=== PATIENT | male | born 1950 | race Caucasian/White ===

== ENCOUNTER 2018-03-23 11:34 | Outpatient (RCR) | payer OTHER, SELFPAY | END 2018-03-23 23:59 | disposition home or self-care (01) | LOC: CR 11:34 | PROVIDERS: Visit Provider Family Medicine | DX: Z95.2 Presence of prosthetic heart valve (principal); I50.9 Heart failure, unspecified; Z51.89 Encounter for other specified aftercare | CPT/HCPCS: S9472 ==

== ENCOUNTER 2018-04-20 13:20 | Outpatient (RCR) | payer OTHER, SELFPAY | END 2018-04-22 23:59 | disposition home or self-care (01) | LOC: CR 13:20 | PROVIDERS: Visit Provider Family Medicine | DX: Z95.2 Presence of prosthetic heart valve (principal); I50.9 Heart failure, unspecified; Z51.89 Encounter for other specified aftercare | CPT/HCPCS: S9472 ==

== ENCOUNTER 2018-05-14 11:50 | Outpatient (RCR) | payer OTHER, SELFPAY | END 2018-05-23 23:59 | disposition home or self-care (01) | LOC: CR 11:50 | PROVIDERS: Visit Provider Family Medicine | DX: Z95.2 Presence of prosthetic heart valve (principal); I50.9 Heart failure, unspecified; Z51.89 Encounter for other specified aftercare | CPT/HCPCS: S9472 ==

== ENCOUNTER 2023-07-31 14:55 | Outpatient (CLI) | payer MEDICARE, BC, SELFPAY ==
[2023-07-31 15:02] LABS: Abs Immature Grans 0.02 10^3/uL (0.0-0.06); Absolute Basophil Count 0.07 10^3/uL (0.0-0.2); Absolute Eosinophil Count 0.24 10^3/uL (0.0-0.7); Absolute Lymphocyte Count 2.45 10^3/uL (1.2-3.4); Absolute Monocyte Count 0.77 10^3/uL (0.1-0.8); Absolute Neutrophil Count 5.81 10^3/uL (1.2-6.7); Basophils % 0.7; Eosinophils % 2.6; HCT 44.4 % (40.0-50.0); HGB 14.6 g/dL (13.5-17.5); Immature Grans % 0.2; Lymphocytes % 26.2; MCH 30.2 pg (27.0-33.0); MCHC 32.9 % (32.0-36.0); MCV 92 fL (80-95); MPV 9.7 fL (8.0-11.0); Monocytes % 8.2; Neutrophils % 62.1; Platelet Count 276 10^3/uL (130-400); RBC 4.84 10^6/uL (4.36-5.78); RDW 12.7 % (11.8-14.1); RDW-SD 42.7 fL; WBC 9.36 10^3/uL (4.4-10.8)
[2023-07-31 15:53] LABS: ALT 32 U/L (16-63); AST 20 U/L (15-37); Albumin 4.1 g/dL (3.4-5.0); Alkaline Phosphatase 60 U/L (46-116); Anion Gap 5.7 mmol/L (3-11); BUN 16 mg/dL (7-18); Bilirubin, Total 0.7 mg/dL (0.2-1.0); CO2 30.3 mmol/L (21.0-32.0); CREATININE 1.2 mg/dL (0.70-1.30); Calcium 9.8 mg/dL (8.5-10.1); Chloride 103 mmol/L (98-107); Estimated GFR 65.06 (mL/min/1.73m2); Glucose 102 mg/dL (74-106); Potassium 4.2 mmol/L (3.5-5.1); Sodium 139 mmol/L (136-145); Total Protein 7.8 g/dL (6.4-8.2)
== END 2023-07-31 14:56 | disposition home or self-care (01) ==
LOC: LBO 14:56
PROVIDERS: Visit Provider Nurse Practitioner Family
DX: R22.0 Localized swelling, mass and lump, head (principal)
CPT/HCPCS: 36415; 80053; 85025

== ENCOUNTER → 2023-08-01 01:24 | Outpatient (CLI) | payer MEDICARE, BC, SELFPAY ==
--- NOTE | 2023-08-01 07:30 | DI.US_ITS ---
Exam(s) US SOFT TISSUE HEAD OR NECK EXAM: US SOFT TISSUE HEAD OR NECK CLINICAL HISTORY: evaluate pathology,swelling rt side of face,r22.0. TECHNIQUE: Ultrasound was performed of the parotid glands. COMPARISON: No exams were available for comparison FINDINGS: Submitted images reveal a complex partially solid partially cystic mass in the right parotid gland camara perficial lobe measuring 5 x 3.9 x 2.4 cm. Exhibits rim hyperemia. There few small adjacent lymph no gen noted. Scanning of the opposite-left parotid gland be reveals a solitary cyst measuring 9 x 8 mm. Scanning of both submandibular glands does not reveal significant masses. IMPRESSION: There is a partially solid partially cystic mass in the superficial aspect of the right parotid gland measuring 5 x 3.9 x 2.4 cm. Differential diagnosis is between neoplasm versus is abscess. There is a small 9 mm benign cyst in the opposite-left parotid gland. No obvious focal findings in both submandibular glands. DATA REPOSITORY:
== END ==
PROVIDERS: Visit Provider Nurse Practitioner Family
DX: K11.8 Other diseases of salivary glands (principal)
CPT/HCPCS: 76536

== ENCOUNTER → 2023-08-22 01:06 | Outpatient (CLI) | payer MEDICARE, BC, SELFPAY ==
--- NOTE | 2023-08-22 07:00 | DI.US_ITS ---
Exam(s) US NEEDLE LOCAL OTHER WO RAD EXAM: Right parotid mass,ultrasound guided bx,k11.8 COMPARISON: No exams were available for comparison TECHNIQUE: Ultrasound performed using standard protocol. FINDINGS: Sonography was provided for Dr. Ramsay during the performance of a right parotid gland mass biopsy. Please refer to the procedure report for complete details. DATA REPOSITORY:
--- NOTE | 2023-08-22 11:35 | PAPNONF_PTH ---
PATIENT: Willie Garrett LOC: [facility] U#:[id number] AGE/SX: 74/M ROOM: RE08/22/[address]: Jayson Ramsay MD : 1950 BED: DIS: SPEC #: [id number] RECD: 08/22/23 11:50 STATUS: MARK REAdi #: [id number] JAIME: 08/22/23 11:[address]: Jayson Ramsay DEPT: [facility] Cytology RECD BY: Josee Dior ENTERED: 08/22/23 11:52 SP TYPE: PAPKATIEF SHANNAN DR: Unknown,Unknown Tissues: 1 - BODY FLUID CYTO-FINE NEEDLE [facility] Procedures: BODY FLUID CYTO-FINE NEEDLE ASPIRATE[facility] Comments: [id number] (PATH FNA CONSULT) (REFRIGERATED)
--- NOTE | 2023-08-22 11:53 | OPPNE_ITS ---
Date of service: 08/22/23 Time of Service: 11:53 Procedure Note Date of procedure: 08/22/23 Procedure: Ultrasound-guided FNA, right parotid mass, pathology present Procedure Diagnosis: Right parotid mass-cystic/solid components Procedure Indications: I reviewed the findings with the patient. We discussed options. He wished to proceed with FNA of the right parotid mass. He was premedicated with 2 g of a moxicillin. The below was then performed after obtaining written consent. Procedure Description: The patient was positioned in supine position with his head turned to the left. Ultrasound was used to localize the right parotid mass which revealed a cystic center and solid periphery. 1% lidocaine with 1/100,000 epinephrine was injected into the skin and subcutaneous tissues overlying the mass after the patient was prepped and draped in appropriate fashion. Using the ultrasound for guidance, a 25-gauge needle was carefully introduced into the solid component of the mass and multiple passes were made into this area. Pathology confirmed adequate cellularity. 2 separate passes were performed. After ensuring adequate hemostasis, a sterile dressing was applied. The patient was then allowed to sit and then stand. His vital signs remained stable. He was able to ambulate afterwards without difficulty. He will call with any signs of infection. He will remove the bandage later today and not replace it. He will call if he does not hear from me within 1 week with regard to pathology results. He had no further questions. His had no further questions. They are comfortable with the plan.
== END ==
PROVIDERS: Visit Provider Otolaryngology
DX: C07 Malignant neoplasm of parotid gland (principal)
CPT/HCPCS: 10005; 76942; 88104

== ENCOUNTER → 2023-11-06 13:05 | Outpatient (CLI) | payer MEDICARE, BC, SELFPAY ==
--- NOTE | 2023-11-06 12:15 | DI.RAD_ITS ---
Exam(s) XR CHEST 2V PA LATERAL EXAM: XR CHEST 2V PA LATERAL CLINICAL HISTORY: evaluate pathology,COUGH R05.9 TECHNIQUE: 2D digital imaging was performed. Two views. COMPARISON: No exams were available for comparison FINDINGS: HEART: Normal size. Aorta: Not dilated. Valve prosthesis. PULMONARY VASCULATURE: Normal. LUNGS: Clear. PLEURAL SPACE: No pleural effusion or pneumothorax. BONE:Flowing osteophytes in the thoracic spine. Sternal wires. Soft tissues: Unremarkable. IMPRESSION: No acute abnormality. DATA REPOSITORY: RADIATION DOSE DELIVERED:
== END ==
PROVIDERS: Visit Provider Nurse Practitioner Family
DX: R05.9 Cough, unspecified (principal)
CPT/HCPCS: 71046

== ENCOUNTER 2023-11-10 12:47 | Outpatient (REF) | payer MEDICARE, BC, SELFPAY ==
[2023-11-10 15:42] LABS: Abs Immature Grans 0.04 10^3/uL (0.0-0.06); Absolute Basophil Count 0.06 10^3/uL (0.0-0.2); Absolute Eosinophil Count 0.32 10^3/uL (0.0-0.7); Absolute Lymphocyte Count 2.12 10^3/uL (1.2-3.4); Absolute Monocyte Count 0.87 10^3/uL (0.1-0.8); Basophils % 0.5; Eosinophils % 2.8; HCT 44.1 % (40.0-50.0); HGB 14.3 g/dL (13.5-17.5); Immature Grans % 0.3; Lymphocytes % 18.3; MCH 30.6 pg (27.0-33.0); MCHC 32.4 % (32.0-36.0); MCV 94 fL (80-95); MPV 10.5 fL (8.0-11.0); Monocytes % 7.5; Neutrophils % 70.6; Platelet Count 340 10^3/uL (130-400); RBC 4.67 10^6/uL (4.36-5.78); RDW 12.1 % (11.8-14.1); RDW-SD 42.5 fL; WBC 11.58 10^3/uL (4.4-10.8)
[2023-11-10 16:02] LABS: Absolute Neutrophil Count 8.18 10^3/uL (1.2-6.7)
[2023-11-10 16:30] LABS: ALT 26 U/L (16-63); AST 19 U/L (15-37); Albumin 3.8 g/dL (3.4-5.0); Alkaline Phosphatase 97 U/L (46-116); Anion Gap 9.2 mmol/L (3-11); BUN 21 mg/dL (7-18); Bilirubin, Total 0.5 mg/dL (0.2-1.0); CO2 28.8 mmol/L (21.0-32.0); CREATININE 1.1 mg/dL (0.70-1.30); Calcium 9.3 mg/dL (8.5-10.1); Calculated LDL 74 mg/dL (<100); Chloride 104 mmol/L (98-107); Cholesterol 148 mg/dL (<200); Estimated GFR 72.22 (mL/min/1.73m2); Glucose 150 mg/dL (74-106); HDL Cholesterol 55 mg/dL (40-60); Potassium 4.1 mmol/L (3.5-5.1); Sodium 142 mmol/L (136-145); Total Protein 8.3 g/dL (6.4-8.2); Triglyceride 96 mg/dL (<150)
[2023-11-10 20:57] LABS: Hemoglobin A1C 6.1 % (<5.7)
== END 2023-11-10 12:48 | disposition home or self-care (01) ==
LOC: NCHCN 12:47
PROVIDERS: Visit Provider Family Medicine
DX: E78.5 Hyperlipidemia, unspecified (principal); R73.9 Hyperglycemia, unspecified; K11.9 Disease of salivary gland, unspecified; Z01.818 Encounter for other preprocedural examination
CPT/HCPCS: 80053; 80061; 83036; 85025